=== PATIENT | female | born 1980 | race Two or more races ===

== ENCOUNTER 2016-06-13 22:06 | Emergency (ER) | payer MEDICAID, OTHER ==
[~2016-06-13 22:06] MED LIST: CIPR500T94 PO; HYDR-971 PO; NAPR500T PO; ONDA4TAB10 SL
[2016-06-13 23:04] LABS: BILIRUBIN,URINE NEGATIVE (NEG); GLUCOSE,URINE NEGATIVE (NEG); NITRITE,URINE NEGATIVE (NEG); PH,URINE 6.5; PROTEIN,URINE NEGATIVE (NEG-TRACE)
[2016-06-13 23:09] LABS: BACTERIA,URINE FEW /HPF (0-FEW); SQUAMOUS EPITHELIAL CELL,UR FEW /LPF; WBC,URINE 0 /HPF (0-4)
[2016-06-13 23:33] VITALS: BP 129/68
[2016-06-13 23:42] LABS: BASO # 0.1 x10^3/uL (0.0-0.2); BASO % 1 % (0-3); EOS % 3 % (0-3); HEMOGLOBIN 12.2 g/dL (12.0-15.5); LYMPH # 2.9 x10^3/uL (1.0-4.8); LYMPH % 25 % (24-48); MEAN CORPUSCULAR HEMOGLOBIN 27 pg (25-35); MEAN CORPUSCULAR HGB CONC 32 g/dL (31-37); MEAN CORPUSCULAR VOLUME 83 fL (79-100); MONO % 7 % (0-9); NEUT % 65 % (31-73); PLATELET COUNT 292 x10^3/uL (140-400); RED BLOOD COUNT 4.58 x10^6/uL (3.50-5.40); RED CELL DISTRIBUTION WIDTH 13.6 % (11.5-14.5); WHITE BLOOD COUNT 11.8 x10^3/uL (4.0-11.0)
[2016-06-13 23:57] LABS: CALCIUM 9.2 mg/dL (8.5-10.1); CREATININE 0.6 mg/dL (0.6-1.0); GFR 111.9; POTASSIUM 3.6 mmol/L (3.5-5.1)
--- NOTE | 2016-06-14 00:07 | RAD ---
PROCEDURE OB ultrasound dated 06/13/2016. HISTORY Spotting. Vaginal bleeding. TECHNIQUE Trans abdominal and transvaginal imaging performed. COMPARISON None. FINDINGS There is a hypoechoic focus in the endometrial canal that may represent gestational sac, measures 0.96 centimeters, correlating with a 5 week 5 day gestation. No pole or yolk sac is visualized. No subchorionic collection. Uterus and left ovary are unremarkable. Trace amount of fluid in the cervix. There is a prominent nabothian cysts. Left ovary measures 2.2 x 1.5 x 1.5 centimeter. Not right ovary not visualized. IMPRESSION - Hypoechoic structure in the endometrial canal may represent a gestational sac correlating with a 5 week 5 day gestation. There is no pole or heart tones at this time. Consider very early gestation or blighted ovum. Recommend correlation with beta HCG values. - Trace amount of fluid in the cervix. - Nonvisualization of the right ovary. Electronically signed by: Jose David Arambula (Jun 14, 2016 00:06:55)
[2016-06-14] MEDS ORDERED: PREN1TAB58 PO (00:21)
--- NOTE | 2016-06-14 00:21 | PHYS DOC ---
Past Medical History Past Medical History: No Pertinent History Past Surgical History: Additional Past Surgical Histo: April 2015 emergency , still born baby, no care. Alcohol Use: None Drug Use: None Adult General Chief Complaint Chief Complaint: VAGINAL BLEEDING [facility] This is a 36-year-old female who has some vaginal spotting today but no pain. Patient states her last menstrual period that she remembers was in March and that she took a home test a month ago that was positive. She has received no care however. She states this is her eighth . She states the first 5 pregnancies went full-term without complication and she also had one full-term that was a stillbirth and then a miscarriage in the first trimester. She denies any pain. She denies any fever or chills. She denies any chest pain or shortness of breath. Patient is speaking in complete and in no distress. She denies any significant past medical history. Review of Systems Review of Systems Constitutional: Denies fever or chills [] Eyes: Denies change in visual acuity, redness, or eye pain [] HENT: Denies nasal congestion or sore throat [] Respiratory: Denies cough or shortness of breath [] Cardiovascular: No additional information not addressed in HPI [] GI: Denies abdominal pain, nausea, vomiting, bloody stools or diarrhea [] : Denies dysuria or hematuria [] Musculoskeletal: Denies back pain or joint pain [] Integument: Denies rash or skin lesions [] Neurologic: Denies headache, focal weakness or sensory changes [] Endocrine: Denies polyuria or polydipsia [] Allergies Allergies Allergies Coded Allergies Type Severity Reaction Last Updated Verified No Known Drug Allergies 04/22/15 No Physical Exam Physical Exam Constitutional: Well developed, well nourished, no acute distress, non-toxic appearance. [] HENT: Normocephalic, atraumatic, bilateral external ears normal, oropharynx moist, no oral exudates, nose normal. [] Eyes: PERRLA, EOMI, conjunctiva normal, no discharge. [] Neck: Normal range of motion, no tenderness, supple, no stridor. [] Cardiovascular:Heart rate regular rhythm, no murmur [] Lungs & Thorax: Bilateral breath sounds clear to auscultation [] Abdomen: Bowel sounds normal, soft, no tenderness, no masses, no pulsatile masses. [] Pelvic exam: Closed cervical os with minimal blood seen in the vaginal vault Skin: Warm, dry, no erythema, no rash. [] Back: No tenderness, no CVA tenderness. [] Extremities: No tenderness, no cyanosis, no clubbing, ROM intact, no edema. [] Neurologic: Alert and oriented X 3, normal motor function, normal sensory function, no focal deficits noted. [] Psychologic: Affect normal, judgement normal, mood normal. [] Current Patient Data Vital Signs Vital Signs Date Time Temp Pulse Resp B/P Pulse Ox O2 Delivery O2 Flow Rate FiO2 06/13/16 23:33 73 18 129/68 97 Room Air 06/13/16 22:17 98.3 98.3 Lab Values Laboratory Tests Test 06/13/16 22:30 06/13/16 23:28 Urine Collection Type Unknown Urine Color Yellow Urine Clarity Clear Urine pH 6.5 Urine Specific [place] 1.020 Urine Protein Negativemg/dL (NEG-TRACE) Urine Glucose (UA) Negativemg/dL (NEG) Urine Ketones (Stick) Negativemg/dL (NEG) Urine Blood Large (NEG) Urine Nitrite Negative (NEG) Urine Bilirubin Negative (NEG) Urine Urobilinogen Dipstick 1.0mg/dL (0.2 mg/dL) Urine Leukocyte Esterase Negative (NEG) Urine RBC 6-10/HPF (0-2) Urine WBC 0/HPF (0-4) Urine Squamous Epithelial Cells Few/LPF Urine Bacteria Few/HPF (0-FEW) Urine Mucus Slight/LPF White Blood Count 11.8x10^3/uL (4.0-11.0) H Red Blood Count 4.58x10^6/uL (3.50-5.40) Hemoglobin 12.2g/dL (12.0-15.5) Hematocrit 38.0% (36.0-47.0) Mean Corpuscular Volume 83fL (79-100) Mean Corpuscular Hemoglobin 27pg (25-35) Mean Corpuscular Hemoglobin Concent 32g/dL (31-37) Red Cell Distribution Width 13.6% (11.5-14.5) Platelet Count 292x10^3/uL (140-400) Neutrophils (%) (Auto) 65% (31-73) Lymphocytes (%) (Auto) 25% (24-48) Monocytes (%) (Auto) 7% (0-9) Eosinophils (%) (Auto) 3% (0-3) Basophils (%) (Auto) 1% (0-3) Neutrophils # (Auto) 7.7x10^3uL (1.8-7.7) Lymphocytes # (Auto) 2.9x10^3/uL (1.0-4.8) Monocytes # (Auto) 0.8x10^3/uL (0.0-1.1) Eosinophils # (Auto) 0.4x10^3/uL (0.0-0.7) Basophils # (Auto) 0.1x10^3/uL (0.0-0.2) Maternal Serum HCG Beta Subunit 17333fPB/mL (0-6) H Sodium Level 141mmol/L (136-145) Potassium Level 3.6mmol/L (3.5-5.1) Chloride Level 104mmol/L (98-107) Carbon Dioxide Level 29mmol/L (21-32) Anion Gap 8 (6-14) Blood Urea Nitrogen 15mg/dL (7-20) Creatinine 0.6mg/dL (0.6-1.0) Estimated GFR (Cockcroft-Gault) 111.9 Glucose Level 112mg/dL (70-99) H Calcium Level 9.2mg/dL (8.5-10.1) Laboratory Tests 06/13/16 23:28 Laboratory Tests 06/13/16 23:28 EKG EKG [] Radiology/Procedures Radiology/Procedures Transvaginal OB ultrasound demonstrates the following: - Hypoechoic structure in the endometrial canal may represent a gestational sac correlating with a 5 week 5 day gestation. There is no pole or heart tones at this time. Consider very early gestation or blighted ovum. Recommend correlation with beta HCG values. - Trace amount of fluid in the cervix. - Nonvisualization of the right ovary. Course & Med Decision Making Course & Med Decision Making Pertinent Labs and Imaging studies reviewed. (See chart for details) This 36-year-old female with ongoing vaginal spotting is likely having a threatened at this time. Blood work is unrevealing. Her transvaginal ultrasound demonstrated a likely gestational sac in the endometrial canal that is correlating with a 5 week 5 day gestation. There is no pole or heart tones seen which could be related to an early gestation or a blighted ovum. I communicated all these findings with the patient and will be providing her an OB follow-up in the next 48 hours for a threatened . Her blood type was A+. She was discharged without incident. Dragon Disclaimer Dragon Disclaimer This electronic medical record was generated, in whole or in part, using a voice recognition dictation system. Departure Departure Impression: Primary Impression: Threatened Disposition: HOME, SELF-CARE Admitting Physician: Other Condition: STABLE Referrals: NO PCP (PCP) RAPHAEL KOHLER Jr, MD Patient Instructions: Threatened Miscarriage, [id number] Additional Instructions: Please follow up with the OB doctor in the next 2 days for your . Take your vitamins daily. Return to the ER if you develop any worsening bleeding or pain. Scripts Vits W-Ca,Fe,Fa(<1MG) ( Vitamins)1 Each Tablet1 Tab PO DAILY # 30 TAB Ref 11 Prov:KARI RODNEY DO 06/14/16 KARI RODNEY DO Jun 14, 2016 00:21
== END 2016-06-14 01:03 | disposition home or self-care (01) ==
LOC: ER 22:06
DX: O20.0 Threatened abortion (principal); Z3A.01 Less than 8 weeks gestation of pregnancy
CPT/HCPCS: 36415; 76817; 80048; 81001; 81025; 84702; 85027; 86900; 86901; 99285-25

== ENCOUNTER 2016-06-26 20:36 | Emergency (ER) | payer OTHER ==
[~2016-06-26] VITALS: Ht 157.5 cm; Wt 96.6 kg
[~2016-06-26 20:36] MED LIST changes: +PREN1TAB58 PO
[2016-06-26 21:25] LABS: BASO # 0.1 x10^3/uL (0.0-0.2); BASO % 1 % (0-3); EOS % 3 % (0-3); HEMATOCRIT 38.1 % (36.0-47.0); HEMOGLOBIN 12.4 g/dL (12.0-15.5); LYMPH # 3.5 x10^3/uL (1.0-4.8); LYMPH % 32 % (24-48); MEAN CORPUSCULAR HEMOGLOBIN 27 pg (25-35); MEAN CORPUSCULAR HGB CONC 33 g/dL (31-37); MEAN CORPUSCULAR VOLUME 83 fL (79-100); MONO % 7 % (0-9); NEUT % 57 % (31-73); PLATELET COUNT 300 x10^3/uL (140-400); RED BLOOD COUNT 4.57 x10^6/uL (3.50-5.40); RED CELL DISTRIBUTION WIDTH 13.5 % (11.5-14.5); WHITE BLOOD COUNT 10.9 x10^3/uL (4.0-11.0)
[2016-06-26 21:28] LABS: BILIRUBIN,URINE NEGATIVE (NEG); GLUCOSE,URINE NEGATIVE (NEG); NITRITE,URINE NEGATIVE (NEG); PROTEIN,URINE 30 mg/dL (NEG-TRACE)
[2016-06-26] MEDS ORDERED: ONDANSETRON PF 4 MG/2 ML VIAL. IV ONE (21:30)
[2016-06-26] MEDS ORDERED: IV NORMAL SALINE 1000ML BAG 1,000 ML IV ONE (21:30)
[2016-06-26] MEDS ORDERED: FENTANYL PF 100 MCG/2 ML VIAL. IV PRN (21:30)
[2016-06-26 21:34] LABS: BACTERIA,URINE FEW /HPF (0-FEW); SQUAMOUS EPITHELIAL CELL,UR MOD /LPF
[2016-06-26 21:39] LABS: CALCIUM 8.8 mg/dL (8.5-10.1); CREATININE 0.6 mg/dL (0.6-1.0); GFR 111.9; POTASSIUM 3.4 mmol/L (3.5-5.1)
[2016-06-26 21:45] LABS: ALBUMIN 3.3 g/dL (3.4-5.0); ALBUMIN/GLOBULIN RATIO 0.8 (1.0-1.7); TOTAL BILIRUBIN 0.2 mg/dL (0.2-1.0); TOTAL PROTEIN 7.7 g/dL (6.4-8.2)
--- NOTE | 2016-06-26 22:41 | RAD ---
PROCEDURE Ob transvaginal ultrasound HISTORY 36-year-old female with vaginal bleeding. No beta HCG level available. TECHNIQUE Sonography of the pelvis is performed utilizing a transvaginal transducer. COMPARISON June 13, 2016. FINDINGS No fluid is seen within the cervical canal. A couple nabothian cysts are suggested. The uterus is anteflexed measuring 9.5 x 4.9 by 5.1 cm. Endometrial thickness of 1.8 cm demonstrated. A trace amount of fluid is present within the endometrial canal, somewhat irregular in configuration not consistent with a well-defined gestational sac. The amount of fluid present is smaller in band that seen on the previous ultrasound and less organized in appearance. The right ovary is visualized measuring 2.1 x 1.1 x 1.1 cm, with internal blood flow documented. The left ovary is visualized measuring 1.9 x 1.5 x 1.4 cm, with internal blood flow documented. No ovarian or adnexal mass is seen. No free fluid is seen within the provided images. IMPRESSION Small amount of irregular fluid within the endometrial canal, without a well-defined gestational sac seen. Amount of endometrial fluid and organization is decreased when compared to the previous exam. No cervical fluid present. No adnexal mass seen. Electronically signed by: Angelica Kimball (Jun 26, 2016 22:39:24)
[2016-06-27] MEDS ORDERED: CEPH-264 PO (00:15)
[2016-06-27] MEDS ORDERED: NAPR500T PO (00:15)
[2016-06-27 00:28] VITALS: BP 128/75
[2016-06-27] MEDS ORDERED: CEPHALEXIN 250 MG CAPSULE PO ONE (00:30)
[2016-06-27] MEDS ORDERED: NAPROXEN 250 MG TABLET PO ONE (00:30)
--- NOTE | 2016-06-27 02:49 | ED.ADGEN ---
Past Medical History Past Medical History: No Pertinent History Past Surgical History: Additional Past Surgical Histo: April 2015 emergency , still born baby, no care. Alcohol Use: None Drug Use: None Adult General Chief Complaint Chief Complaint: VAGINAL BLEEDING HPI HPI Patient is a 36 year old woman, , with history of of a stillbirth in April 2015, and a previous miscarriage, who presents to the emergency department with complaint of vaginal bleeding after an emergency department evaluation several days ago for vaginal bleeding and threatened miscarriage. Patient states that she's had bleeding and cramping over the past 3 days. Denies any passage of fluid or tissue. States she is having cramping and bleeding consistent with a typical menstrual cycle. Patient states she's used 3 pads today. Denies any lightheadedness, dizziness, any nausea or vomiting. Mild cramping at this time. Mild back pain. No urinary symptoms, no discharge, drainage, no concern for STD exposures. Review of Systems Review of Systems Constitutional: Denies fever or chills. [] Eyes: Denies change in visual acuity. [] HENT: Denies nasal congestion or sore throat. [] Respiratory: Denies cough or shortness of breath. [] Cardiovascular: Denies chest pain or edema. [] GI: Denies abdominal pain, nausea, vomiting, bloody stools or diarrhea. [] : Denies dysuria. [] Musculoskeletal: Denies back pain or joint pain. [] Integument: Denies rash. [] Neurologic: Denies headache, focal weakness or sensory changes. [] Endocrine: Denies polyuria or polydipsia. [] Lymphatic: Denies swollen glands. [] Psychiatric: Denies depression or anxiety. [] Current Medications Current Medications Current Medications Medications (Trade) Dose Ordered Sig/Macy Start Time Stop Time Status Last Admin Dose Admin Cephalexin HCl (Keflex) 500 mg 1X ONCE 06/27/16 00:30 06/27/16 00:31 DC 06/27/16 00:20 500 MG Fentanyl Citrate (Fentanyl 2ml Vial) 25 mcg PRN Q15MIN PRN 06/26/16 21:30 06/27/16 02:02 DC 06/26/16 21:31 25 MCG Naproxen (Naprosyn) 250 mg 1X ONCE 06/27/16 00:30 06/27/16 00:31 DC 06/27/16 00:20 250 MG Ondansetron HCl (Zofran) 4 mg 1X ONCE 06/26/16 21:30 06/26/16 21:31 DC 06/26/16 21:31 4 MG Sodium Chloride (Iv Sodium Chloride 0.9% 1000ml Bag) 1,000 ml @ 1,000 mls/hr 1X ONCE 06/26/16 21:30 06/26/16 22:29 DC 06/26/16 21:28 1,000 MLS/HR Allergies Allergies Allergies Coded Allergies Type Severity Reaction Last Updated Verified No Known Drug Allergies 04/22/15 No Physical Exam Physical Exam Constitutional: Well developed, well nourished, no acute distress, non-toxic appearance. [] HENT: Normocephalic, atraumatic, bilateral external ears normal, oropharynx moist, no oral exudates, nose normal. [] Eyes: PERRLA, EOMI, conjunctiva normal, no discharge. [] Neck: Normal range of motion, no tenderness, supple, no stridor. [] Cardiovascular:Heart rate regular rhythm, no murmur , S1, S2, rubs or gallops. [ ] Lungs & Thorax: Bilateral breath sounds clear to auscultation, no wheezing, rhonchi, rales. No chest tenderness or crepitus. [] Abdomen: Bowel sounds normal, soft, no tenderness, no masses, no pulsatile masses. [] Skin: Warm, dry, no erythema, no rash. [] Back: No tenderness, no CVA tenderness. [] Extremities: No tenderness, no cyanosis, no clubbing, ROM intact, no edema. [] Neurologic: Alert and oriented X 3, normal motor function, normal sensory function, no focal deficits noted. [] Psychologic: Affect normal, judgement normal, mood normal. [] examination: Patient with a small amount of dark blood noted in the vault, patient with open os, internal and external, 1 cm. No tissue noted, patient was smaller dark blood as stated, normal-appearing cervix which is dilated stated. No adnexal masses or tenderness. Current Patient Data Vital Signs Vital Signs Date Time Temp Pulse Resp B/P Pulse Ox O2 Delivery O2 Flow Rate FiO2 06/27/16 00:28 87 128/75 98 Room Air 3/19/17 21:31 18 06/26/16 20:48 98.6 98.6 Lab Values Laboratory Tests Test 06/26/16 20:22 06/26/16 21:07 06/26/16 21:15 POC Urine HCG, Qualitative Hcg positive (Negative) White Blood Count 10.9x10^3/uL (4.0-11.0) Red Blood Count 4.57x10^6/uL (3.50-5.40) Hemoglobin 12.4g/dL (12.0-15.5) Hematocrit 38.1% (36.0-47.0) Mean Corpuscular Volume 83fL (79-100) Mean Corpuscular Hemoglobin 27pg (25-35) Mean Corpuscular Hemoglobin Concent 33g/dL (31-37) Red Cell Distribution Width 13.5% (11.5-14.5) Platelet Count 300x10^3/uL (140-400) Neutrophils (%) (Auto) 57% (31-73) Lymphocytes (%) (Auto) 32% (24-48) Monocytes (%) (Auto) 7% (0-9) Eosinophils (%) (Auto) 3% (0-3) Basophils (%) (Auto) 1% (0-3) Neutrophils # (Auto) 6.2x10^3uL (1.8-7.7) Lymphocytes # (Auto) 3.5x10^3/uL (1.0-4.8) Monocytes # (Auto) 0.8x10^3/uL (0.0-1.1) Eosinophils # (Auto) 0.4x10^3/uL (0.0-0.7) Basophils # (Auto) 0.1x10^3/uL (0.0-0.2) Urine Collection Type Unknown Urine Color Yellow Urine Clarity Turbid Urine pH 6.0 Urine Specific [place] 1.015 Urine Protein 30mg/dL (NEG-TRACE) Urine Glucose (UA) Negativemg/dL (NEG) Urine Ketones (Stick) Negativemg/dL (NEG) Urine Blood Large (NEG) Urine Nitrite Negative (NEG) Urine Bilirubin Negative (NEG) Urine Urobilinogen Dipstick 1.0mg/dL (0.2 mg/dL) Urine Leukocyte Esterase Small (NEG) Urine RBC 11-20/HPF (0-2) Urine WBC 5-10/HPF (0-4) Urine Squamous Epithelial Cells Mod/LPF Urine Bacteria Few/HPF (0-FEW) Urine Mucus Mod/LPF Sodium Level 142mmol/L (136-145) Potassium Level 3.4mmol/L (3.5-5.1) L Chloride Level 105mmol/L (98-107) Carbon Dioxide Level 28mmol/L (21-32) Anion Gap 9 (6-14) Blood Urea Nitrogen 11mg/dL (7-20) Creatinine 0.6mg/dL (0.6-1.0) Estimated GFR (Cockcroft-Gault) 111.9 BUN/Creatinine Ratio 18 (6-20) Glucose Level 100mg/dL (70-99) H Calcium Level 8.8mg/dL (8.5-10.1) Total Bilirubin 0.2mg/dL (0.2-1.0) Aspartate Amino Transferase (AST) 17U/L (15-37) Alanine Aminotransferase (ALT) 29U/L (14-59) Alkaline Phosphatase 66U/L (46-116) Total Protein 7.7g/dL (6.4-8.2) Albumin 3.3g/dL (3.4-5.0) L Albumin/Globulin Ratio 0.8 (1.0-1.7) L Maternal Serum HCG Beta Subunit 1641mIU/mL (0-6) H Laboratory Tests 06/26/16 21:07 Laboratory Tests 06/26/16 21:07 Microbiology 06/26/16 Wet Prep - Final, Complete EKG EKG ECG: Rhythm strip: Sinus rhythm, heart rate 80 bpm, no ectopy. As interpreted by me. Radiology/Procedures Radiology/Procedures [] [facility] [address] [place], [place] [id number] IMAGING REPORT Signed PATIENT: BROOKLYN PONCE ACCOUNT: [id number] : 1980 LOCATION: ER AGE: 36 SEX: F EXAM STATUS: REG ER ORD. PHYSICIAN: RHONDA VELÁZQUEZ DO REASON: Vag bleeding in PROCEDURE: OB TRANSVAG PROCEDURE Ob transvaginal ultrasound HISTORY 36-year-old female with vaginal bleeding. No beta HCG level available. TECHNIQUE Sonography of the pelvis is performed utilizing a transvaginal transducer. COMPARISON June 13, 2016. FINDINGS No fluid is seen within the cervical canal. A couple nabothian cysts are suggested. The uterus is anteflexed measuring 9.5 x 4.9 by 5.1 cm. Endometrial thickness of 1.8 cm demonstrated. A trace amount of fluid is present within the endometrial canal, somewhat irregular in configuration not consistent with a well-defined gestational sac. The amount of fluid present is smaller in band that seen on the previous ultrasound and less organized in appearance. The right ovary is visualized measuring 2.1 x 1.1 x 1.1 cm, with internal blood flow documented. The left ovary is visualized measuring 1.9 x 1.5 x 1.4 cm, with internal blood flow documented. No ovarian or adnexal mass is seen. No free fluid is seen within the provided images. IMPRESSION Small amount of irregular fluid within the endometrial canal, without a well-defined gestational sac seen. Amount of endometrial fluid and organization is decreased when compared to the previous exam. No cervical fluid present. No adnexal mass seen. Electronically signed by: Ingrid Lund (Jun 26, 2016 22:39:24) DICTATED and SIGNED BY: INGRID LUND MD DATE: 06/26/169 CC: RHONDA VELÁZQUEZ DO; NO PCP ~ Course & Med Decision Making Course & Med Decision Making Pertinent Labs and Imaging studies reviewed. (See chart for details) Patient's examination is consistent with miscarriage. Ultrasound reveals small amount of fluid in the uterus and vaginal canal, no evidence of gestational sac or other denies structure. Patient's beta quantitative assay has gone from 13, [id number], consistent with a completed miscarriage. Patient also noted to have evidence of a urinary tract infection. We discussed the fact that this is a completed miscarriage with patient and significant other at bedside. Patient has an appointment to follow up with an [facility] later this week. Inserting her to contact her [facility] with this information, to confirm follow-up. Patient initiated on Keflex in the emergency department, first dose given in the ED without issue. Patient is not experiencing any cramping at this time. Instructed to use [id number] pain medications as needed, given clear and detailed return instructions with which she voiced understanding and agreement. Patient discharged home in stable condition with plan as above. [place]ison Disclaimer Dragon Disclaimer This electronic medical record was generated, in whole or in part, using a voice recognition dictation system. Departure Impression: Primary Impression: Complete miscarriage Disposition: HOME, SELF-CARE Condition: IMPROVED Scripts Naproxen (Naprosyn)500 Mg Tablet1 Tab PO BID PRN PAIN #10 TAB Ref 1 Prov:RHONDA VELÁZQUEZ DO 06/27/16 Cephalexin (Keflex)500 Mg Capsule1 Cap PO BID #14 CAP Prov:RHONDA VELÁZQUEZ DO 06/27/16 RHONDA VELÁZQUEZ DO Jun 27, 2016 02:49
== END 2016-06-27 00:36 | disposition home or self-care (01) ==
LOC: ER 20:36
DX: O03.9 Complete or unspecified spontaneous abortion without complication (principal); Z3A.08 8 weeks gestation of pregnancy
CPT/HCPCS: 36415; 76817; 80053; 81001; 81025; 84702; 85027; 87086; 87186; 87491; 87591; 96361; 96374; 96375; 99285; J2405; J3010; J7030; Q0111

== ENCOUNTER 2016-08-26 17:36 | Emergency (ER) | payer OTHER ==
[~2016-08-26] VITALS: Ht 157.5 cm; Wt 90.7 kg
[~2016-08-26 17:36] MED LIST changes: +CEPH-264 PO
[2016-08-26 18:55] VITALS: BP 138/82
[2016-08-26] MEDS ORDERED: HYDR-79 PO (18:55)
[2016-08-26] MEDS ORDERED: AMOX875T PO (18:55)
--- NOTE | 2016-08-26 18:55 | PHYS DOC ---
Past Medical History Past Medical History: No Pertinent History Past Surgical History: Additional Past Surgical Histo: April 2015 emergency , still born baby, no care. Alcohol Use: None Drug Use: None Adult General Chief Complaint Chief Complaint: DENTAL PROBLEM HPI HPI Patient is a 36 year old female who presents with right lower gum dental pain that began yesterday. Patient states she woke up this morning and her right lower facial area was swollen. Review of Systems Review of Systems Constitutional: Denies fever or chills [] Eyes: Denies change in visual acuity, redness, or eye pain [] HENT: Dental pain and jaw swelling Musculoskeletal: Denies back pain or joint pain [] Integument: Denies rash or skin lesions [] Neurologic: Denies headache, focal weakness or sensory changes [] Endocrine: Denies polyuria or polydipsia [] Allergies Allergies Allergies Coded Allergies Type Severity Reaction Last Updated Verified No Known Drug Allergies 04/22/15 No Physical Exam Physical Exam Constitutional: Well developed, well nourished, no acute distress, non-toxic appearance. [] HENT: Normocephalic, atraumatic, bilateral external ears normal, oropharynx moist, no oral exudates, nose normal. [] Right lower facial area with mild swelling consistent with a dental abscess. Tooth #32 is decayed. Missing teeth #31 and 30. Scattered dental caries throughout her teeth. Right gum with redness on the molars and premolars. No fluctuance noted on the right gum. Skin: Warm, dry, no erythema, no rash. [] Back: No tenderness, no CVA tenderness. [] Extremities: No tenderness, no cyanosis, no clubbing, ROM intact, no edema. [] Neurologic: Alert and oriented X 3, normal motor function, normal sensory function, no focal deficits noted. [] Psychologic: Affect normal, judgement normal, mood normal. [] EKG EKG [] Radiology/Procedures Radiology/Procedures [] Course & Med Decision Making Course & Med Decision Making Pertinent Labs and Imaging studies reviewed. (See chart for details) Patient has dental abscess. Discharged with amoxicillin, follow-up with the dentist in 1-2 weeks. Dragon Disclaimer Dragon Disclaimer This electronic medical record was generated, in whole or in part, using a voice recognition dictation system. Departure Departure Impression: Primary Impression: Dental abscess Additional Impression: Dentalgia Disposition: 01 HOME, SELF-CARE Condition: STABLE Referrals: NO PCP (PCP) Follow-up with your dentist in 1-2 weeks. Patient Instructions: Dental Abscess, Dental Caries Additional Instructions: You were seen for dental abscess. Complete your antibiotics. Ensure you follow- up with the dentist as soon as possible. Scripts Hydrocodone/Ibuprofen (HYDROCODONE-IBUPROFEN 7.5-200 ) 1 Each Tablet 1 TAB PO PRN Q6HRS Y for PAIN, #12 TAB 0 Refills Prov: ADRIENNE HORTON APRN 08/26/16 Amoxicillin (AMOXICILLIN) 875 Mg Tablet 1 TAB PO BID, #20 TAB Prov: ADRIENNE HORTON APRN 08/26/16 Problem Qualifiers ADRIENNE HORTON APRN August 26, 2016 18:55
== END 2016-08-26 19:07 | disposition home or self-care (01) ==
LOC: ER 17:36
DX: K04.7 Periapical abscess without sinus (principal)
CPT/HCPCS: 99283

== ENCOUNTER 2017-09-17 02:29 | Emergency (ER) | payer SELFPAY, OTHER ==
[2017-09-17 02:46] LABS: URINE HCG POC HCG POSITIVE (Negative)
[2017-09-17 03:23] LABS: BILIRUBIN,URINE NEGATIVE (NEG); CLARITY,URINE CLEAR; COLOR,URINE YELLOW; GLUCOSE,URINE NEGATIVE (NEG); NITRITE,URINE NEGATIVE (NEG); PH,URINE 5.5; PROTEIN,URINE 100 mg/dL (NEG-TRACE)
[2017-09-17 03:43] LABS: BACTERIA,URINE FEW /HPF (0-FEW); RBC,URINE OCC /HPF (0-2); SQUAMOUS EPITHELIAL CELL,UR MOD /LPF
[2017-09-17 03:47] LABS: BASO % 0 % (0-3); EOS # 0.1 x10^3/uL (0.0-0.7); EOS % 0 % (0-3); HEMATOCRIT 38.6 % (36.0-47.0); HEMOGLOBIN 13.3 g/dL (12.0-15.5); LYMPH # 1.1 x10^3/uL (1.0-4.8); LYMPH % 6 % (24-48); MEAN CORPUSCULAR HEMOGLOBIN 28 pg (25-35); MEAN CORPUSCULAR HGB CONC 35 g/dL (31-37); MEAN CORPUSCULAR VOLUME 82 fL (79-100); MONO # 0.8 x10^3/uL (0.0-1.1); MONO % 5 % (0-9); NEUT # 15.3 x10^3uL (1.8-7.7); NEUT % 89 % (31-73); PLATELET COUNT 272 x10^3/uL (140-400); RED CELL DISTRIBUTION WIDTH 13.7 % (11.5-14.5); WHITE BLOOD COUNT 17.3 x10^3/uL (4.0-11.0)
[2017-09-17 03:54] LABS: ADD MAN DIFF? YES
[2017-09-17 03:57] LABS: ANION GAP 12 (6-14); BLOOD UREA NITROGEN 15 mg/dL (7-20); CALCIUM 8.6 mg/dL (8.5-10.1); CARBON DIOXIDE 22 mmol/L (21-32); CHLORIDE 101 mmol/L (98-107); CREATININE 0.6 mg/dL (0.6-1.0); GFR 111.3; GLUCOSE 129 mg/dL (70-99); POTASSIUM 3.9 mmol/L (3.5-5.1); SODIUM 135 mmol/L (136-145)
[2017-09-17] MEDS: diphenhydrAMINE 50 MG/ML VIAL IM (04:00)
[2017-09-17] MEDS: METOCLOPRAMIDE HCL 10 MG/2 ML VIAL. IV (04:00)
[2017-09-17] MEDS: IV NORMAL SALINE 1000ML BAG 1,000 ML IV (04:00)
[2017-09-17 04:03] LABS: ALBUMIN 2.8 g/dL (3.4-5.0); ALK PHOS 67 U/L (46-116); ALT (SGPT) 27 U/L (14-59); AST (SGOT) 24 U/L (15-37); DIRECT BILIRUBIN 0.1 mg/dL (0.0-0.2); LIPASE 86 U/L (73-393); TOTAL BILIRUBIN 0.6 mg/dL (0.2-1.0); TOTAL PROTEIN 7.9 g/dL (6.4-8.2)
[2017-09-17 05:04] LABS: % BANDS 9 % (0-9); % LYMPHS 9 % (24-48); % MONOS 1 % (0-10); % SEGS 81 % (35-66); PLT ESTIMATE ADEQUATE (ADEQUATE)
== END 2017-09-17 06:36 | disposition home or self-care (01) ==
LOC: ER 02:29
DX: O26.891 Other specified pregnancy related conditions, first trimester (principal); R10.11 Right upper quadrant pain; O21.9 Vomiting of pregnancy, unspecified; O24.419 Gestational diabetes mellitus in pregnancy, unspecified control; O99.331 Smoking (tobacco) complicating pregnancy, first trimester; Z3A.13 13 weeks gestation of pregnancy
CPT/HCPCS: 36415; 76705; 76815; 80048; 80076; 81001; 81025; 83690; 85007; 85025; 96361; 96372; 96374; 99285-25; J1200; J2765; J7030

== ENCOUNTER → 2017-11-14 | Outpatient (CLI) | payer MEDICAID | END | disposition home or self-care (01) | LOC: US 12:05 | DX: O36.4XX0 Maternal care for intrauterine death, not applicable or unspecified (principal); Z3A.21 21 weeks gestation of pregnancy | CPT/HCPCS: 76805; 76817 ==

== ENCOUNTER 2017-11-21 08:18 | Inpatient (IN) | payer MEDICAID, OTHER ==
[~2017-11-21] VITALS: Ht 154.9 cm; Wt 102.5 kg
[~2017-11-21 08:18] MED LIST changes: +AMOX875T PO; +HYDR-79 PO; +METO10TA81 PO; +NAPR-683 PO; -NAPR500T PO
--- NOTE | 2017-11-21 08:41 | PDOC1 ---
OB - History Hx of Present Care: Limited Care Ultrasounds: Normal mid trimester US Obstetrical Complications: Other (IUFD) Medical Complications: None Past Family/Social History * Past Medical, Surgical, Family and Obstetric Histories reviewed from chart. Blood Type: A+ Rubella: Immune RPR/VDRL: Negative GBS Status: Unknown HBsAG: Negative OB - Chief Complaint & HPI Date of Admission: Date of Admission: Nov 21, 2017 at 08:18 Chief Complaint/History : 9 Para: 6 EGA: 20 Reason for admission: induction of labor (IUFD) Admission Nurse Assessment Rev: Yes OB - Admission Exam Physical Exam HEENT: Normal Heart: Regular Rate Lungs: Clear Abdomen: Gravid, Non tender, Soft Reflexes: Normal Cervical Dilatation: None Effacement: 25% Station: -3 Membranes: Intact Amniotic Fluid: Other Short Term Variability: Absent Contractions on Admission: None Text A: 20 wks IUFD Previous c/s x 1 P: Admit for IOL with cytotec for delivery of IUFD. RAPHAEL KOHLER Jr, MD Nov 21, 2017 08:41
[2017-11-21] MEDS ORDERED: ONDANSETRON PF 4 MG/2 ML VIAL. IV PRN (09:00)
[2017-11-21] MEDS ORDERED: IBUPROFEN 800 MG TABLET. PO PRN (09:00)
[2017-11-21] MEDS ORDERED: ACETAMINOPHEN 325 MG TABLET. PO PRN (09:00)
[2017-11-21] MEDS ORDERED: MISOPROSTOL VG PRN (09:00)
[2017-11-21] MEDS ORDERED: fentaNYL PF VIAL 100 MCG/2 ML VIAL IV PRN (09:00)
[2017-11-21] MEDS ORDERED: IV RINGERS,LACTATED 1000ML 1,000 ML IV PRN (09:00)
[2017-11-21] MEDS ORDERED: OXYTOCIN 30 UNIT/500 ML PREMIX 500 ML IV PRN (09:00)
[2017-11-21] MEDS ORDERED: 0.9 % SODIUM CHLORIDE 10 ML DISP.SYRIN. IV PRN (09:00)
[2017-11-21] MEDS ORDERED: TERBUTALINE 1 MG/ML VIAL. SQ PRN (09:00)
[2017-11-21 09:24] LABS: BILIRUBIN,URINE NEGATIVE (NEG); CLARITY,URINE CLEAR; COLOR,URINE YELLOW; NITRITE,URINE POSITIVE (NEG); PROTEIN,URINE 30 mg/dL (NEG-TRACE); UROBILINOGEN,URINE 0.2 mg/dL (0.2 mg/dL)
[2017-11-21 09:37] VITALS: BP 127/68
[2017-11-21 09:49] LABS: BASO % 0 % (0-3); EOS # 0.2 x10^3/uL (0.0-0.7); EOS % 2 % (0-3); HEMATOCRIT 34.3 % (36.0-47.0); HEMOGLOBIN 11.5 g/dL (12.0-15.5); LYMPH # 2.2 x10^3/uL (1.0-4.8); LYMPH % 20 % (24-48); MEAN CORPUSCULAR HEMOGLOBIN 28 pg (25-35); MEAN CORPUSCULAR HGB CONC 34 g/dL (31-37); MEAN CORPUSCULAR VOLUME 84 fL (79-100); MONO # 0.6 x10^3/uL (0.0-1.1); MONO % 6 % (0-9); NEUT # 7.9 x10^3uL (1.8-7.7); NEUT % 71 % (31-73); PLATELET COUNT 269 x10^3/uL (140-400); RED CELL DISTRIBUTION WIDTH 13.5 % (11.5-14.5)
[2017-11-21 09:50] LABS: BACTERIA,URINE MANY /HPF (0-FEW)
[2017-11-21 09:51] LABS: SQUAMOUS EPITHELIAL CELL,UR MANY /LPF
[2017-11-21] MEDS: miSOPROStol 200MCG TAB 200 MCG TABLET VG SCH ×3 (09:54→19:00)
[2017-11-21] MEDS ORDERED: miSOPROStol 200MCG TAB 200 MCG TABLET VG ONE (20:00)
[2017-11-22] MEDS ORDERED: MISOPROSTOL VG PRN
[2017-11-22] MEDS ORDERED: ceFAZolin SODIUM IV Push 1 GM VIAL. IVP SCH ×2 (02:00→05:00)
[2017-11-22 03:20] VITALS: BP 123/60
[2017-11-22 04:15] VITALS: BP 125/59
[2017-11-22 07:45] VITALS: BP 110/68
--- NOTE | 2017-11-22 08:18 | PDOC ---
VAGINAL DELIVERY DATE DATE: 11/22/17 TIME: 08:16 : Other (9) Para: Other (3) EGA: 18 VAGINAL DELIVERY: BREECH PLACENTA: Spontaneous 0/0 SEX: Male WEIGHT Weight [ 5 ounces] Nuchal Cord: No Amniotic Fluid: Other (dark brown) PAIN: Natural EPISIOTOMY: No EXTENSION: No EBL 100 ml COMPLICATIONS IUFD CONDITION pt. stable Signs of Intrauterine Infectio: None Shoulder Dystocia: No RAPHAEL KOHLER Jr, MD Nov 22, 2017 08:18
--- NOTE | 2017-11-22 08:19 | DISCH ---
DISCHARGE INSTRUCTIONS Condition on Discharge Condition on Discharge: Stable Activity After Discharge Activity Instructions for Disc: Activity as tolerated Bathing Instructions: Shower-keep dressing dry, No Tub Bath until see Exercise Instruction after Dis: Progress as tolerated Driving Instructions after Dis: Do not drive today Weight Bearing Status after Di: As tolerated Diet after Discharge Diet after Discharge: Regular Checks after Discharge Checks after discharge: Check your Temp as needed Contacting the DRBarber after DC Call your doctor for: Concerns you may have Follow-Up Follow up with: Dr. Monahan in 2 weeks. RAPHAEL MONAHAN Jr, MD Nov 22, 2017 08:19
[2017-11-22] MEDS ORDERED: NAPR-683 PO (08:23)
[2017-11-22] MEDS ORDERED: MEASLES, MUMPS & RUBELLA VACC 0.5 ML VIAL. VAX SQ ONE (10:00)
[2017-11-22 12:48] VITALS: BP 130/86
== END 2017-11-22 13:05 | disposition home or self-care (01) | DRG 779 ==
LOC: 3 SO LND 08:18 → 3 NORTH 11-22 07:40
PROVIDERS: ADMIT Obstetrics & Gynecology; ATTEND Obstetrics & Gynecology
PROC: 10E0XZZ Delivery of Products of Conception, External Approach (ICD-10-PCS; principal; 2017-11-22)
PROC: 3E0P7VZ Introduction of Hormone into Female Reproductive, Via Natural or Artificial Opening (ICD-10-PCS; 2017-11-22)
PROC: 3E033VJ Introduction of Other Hormone into Peripheral Vein, Percutaneous Approach (ICD-10-PCS; 2017-11-22)
DX: O02.1 Missed abortion (principal); O32.1XX0 Maternal care for breech presentation, not applicable or unspecified; O34.219 Maternal care for unspecified type scar from previous cesarean delivery; Z37.1 Single stillbirth; Z3A.20 20 weeks gestation of pregnancy
CPT/HCPCS: 36415; 81001; 85025; 86703; 86762; 86803; 86850; 86900; 86901; 87086; 87340; 90707; J0690; J2590; J7120

== ENCOUNTER 2018-06-13 18:20 | Emergency (ER) | payer OTHER ==
[~2018-06-13] VITALS: Ht 157.5 cm; Wt 108.9 kg
[~2018-06-13 18:20] MED LIST changes: +HYDR-3164 PO; -HYDR-79 PO; -HYDR-971 PO; +HYDROCODONE-IB1 EAC3 PO
[2018-06-13 19:15] VITALS: BP 141/82
--- NOTE | 2018-06-13 20:11 | PHYS DOC ---
Past Medical History Past Medical History: No Pertinent History Additional Past Medical Histor: GESTATIONAL DIABETES (SOLADRIENNE MAYERS) Past Surgical History: Additional Past Surgical Histo: section (SOLADRIENNE APRN) Alcohol Use: None Drug Use: None (SOLADRIENNE APRN) Adult General Chief Complaint Chief Complaint: COUGH HPI HPI Patient is a 38 year old female 10 para 5 currently 18 weeks presenting to the ED today complaining of body aches, chills, cough, nasal congestion, symptoms began yesterday. Patient is also complaining of subjective fevers. She states she's been following up with her CRITICAL CARE UNIT MANAGER for her . Denies any vaginal bleeding. (REJIADRIENNE White APRN) Review of Systems Review of Systems Constitutional: Reports subjective fevers and body aches Eyes: Denies change in visual acuity, redness, or eye pain [] HENT: Reports nasal congestion, denies sore throat [] Respiratory: Denies cough or shortness of breath [] Cardiovascular: No additional information not addressed in HPI [] GI: Denies abdominal pain, nausea, vomiting, bloody stools or diarrhea [] : Denies dysuria or hematuria [] Musculoskeletal: Denies back pain or joint pain [] Integument: Denies rash or skin lesions [] Neurologic: Denies headache, focal weakness or sensory changes [] All other systems were reviewed and found to be within normal limits, except as documented in this note. (SOLADRIENNE APRN) Allergies Allergies Allergies Coded Allergies Type Severity Reaction Last Updated Verified No Known Drug Allergies 04/22/15 No (ALLI OSBORN DO) Physical Exam Physical Exam Constitutional: Well developed, well nourished, no acute distress, non-toxic appearance. [] HENT: Normocephalic, atraumatic, bilateral external ears normal, oropharynx moist, no oral exudates, nose normal. [] Eyes: PERRLA, EOMI, conjunctiva normal, no discharge. [] Neck: Normal range of motion, no tenderness, supple, no stridor. [] Cardiovascular:Heart rate regular rhythm, no murmur [] Lungs & Thorax: Bilateral breath sounds clear to auscultation [] Abdomen: Gravid abdomen. Bowel sounds normal, soft, no tenderness, no masses, no pulsatile masses. [] Skin: Warm, dry, no erythema, no rash. [] Back: No tenderness, no CVA tenderness. [] Extremities: No tenderness, no cyanosis, no clubbing, ROM intact, no edema. [] Neurologic: Alert and oriented X 3, normal motor function, normal sensory function, no focal deficits noted. [] Psychologic: Affect normal, judgement normal, mood normal. [] (SERENAUNGADRIENNE White APRN) Current Patient Data Vital Signs Vital Signs Date Time Temp Pulse Resp B/P (MAP) Pulse Ox O2 Delivery O2 Flow Rate FiO2 06/13/18 19:15 99.3 101 20 141/82 (101) 100 Room Air 99.3 (Taodyne) Lab Values Laboratory Tests Test 06/13/18 19:30 06/13/18 20:19 Influenza Type A Antigen Positive (NEGATIVE) Influenza Type B Antigen Negative (NEGATIVE) Urine Color Anny Urine Clarity Clear Urine pH 6.5 Urine Specific [place] 1.025 Urine Protein 100 mg/dL (NEG-TRACE) Urine Glucose (UA) Negative mg/dL (NEG) Urine Ketones (Stick) Negative mg/dL (NEG) Urine Blood Large (NEG) Urine Nitrite Negative (NEG) Urine Bilirubin Small (NEG) Urine Urobilinogen Dipstick 4.0 mg/dL (0.2 mg/dL) Urine Leukocyte Esterase Negative (NEG) Urine RBC 6-10 /HPF (0-2) Urine WBC 5-10 /HPF (0-4) Urine Squamous Epithelial Cells Occ /LPF Urine Bacteria Moderate /HPF (0-FEW) Urine Mucus Mod /LPF ([employer] DO) Lab Values Laboratory Tests Test 06/13/18 19:30 06/13/18 20:19 Influenza Type A Antigen Positive (NEGATIVE) Influenza Type B Antigen Negative (NEGATIVE) Urine Color Anny Urine Clarity Clear Urine pH 6.5 Urine Specific [place] 1.025 Urine Protein 100 mg/dL (NEG-TRACE) Urine Glucose (UA) Negative mg/dL (NEG) Urine Ketones (Stick) Negative mg/dL (NEG) Urine Blood Large (NEG) Urine Nitrite Negative (NEG) Urine Bilirubin Small (NEG) Urine Urobilinogen Dipstick 4.0 mg/dL (0.2 mg/dL) Urine Leukocyte Esterase Negative (NEG) Urine RBC 6-10 /HPF (0-2) Urine WBC 5-10 /HPF (0-4) Urine Squamous Epithelial Cells Occ /LPF Urine Bacteria Moderate /HPF (0-FEW) Urine Mucus Mod /LPF (ADRIENNE HORTON APRN) EKG EKG [] (ADRIENNE HORTON APRN) Radiology/Procedures Radiology/Procedures [] (ADRIENNE HORTON APRN) Course & Med Decision Making Course & Med Decision Making Pertinent Labs and Imaging studies reviewed. (See chart for details) This is a 38-year-old 10 para 5 currently 15 weeks presenting to the ED today complaining of cough, nasal congestion, body aches, subjective fevers, symptoms since yesterday. Positive for influenza A, negative influenza A and B. FHR 164. UA positive for UTI dc with Cephalaxin f/u with PCP next week. (ADRIENNE HORTON APRN) Dragon Disclaimer Dragon Disclaimer This electronic medical record was generated, in whole or in part, using a voice recognition dictation system. (ADRIENNE HORTON APRN) Departure Departure Impression: Primary Impression: Urinary tract infection during Additional Impression: Influenza A Disposition: HOME, SELF-CARE Condition: STABLE Referrals: NO PCP (PCP) Follow-up with the CRITICAL CARE UNIT MANAGER next week Patient Instructions: Influenza A (H1N1), Urinary Tract Infection Additional Instructions: You were evaluated in the emergency room and was positive for influenza A as well as urinary tract infection, take the prescribed medications as ordered until completed. Push fluids, take Tylenol as needed for pain. Rest, follow-up with your CRITICAL CARE UNIT MANAGER in the next 3-7 days. Scripts Oseltamivir Phosphate (TAMIFLU) 75 Mg Capsule 1 CAP PO BID, #10 CAP Prov: ADRIENNE HORTON APRN 06/13/18 Cephalexin (CEPHALEXIN) 500 Mg Tablet 1 TAB PO BID, #14 TAB Prov: ADRIENNE HORTON APRN 06/13/18 Attending Signature Attending Signature I have reviewed the PA/PRIMARY HEALTH ORGANISATION MANAGER's note and plan of care. I was available for consultation as needed during the patient's visit in the emergency department. I agree with the clinical impression, plan, and disposition. (ALLI OSBORN DO) Problem Qualifiers Primary Impression: Urinary tract infection during Trimester: unspecified trimester Qualified Codes: O23.40 - Unspecified infection of urinary tract in , unspecified trimester ADRIENNE HORTON APRN Jun 13, 2018 20:11 ALLI OSBORN DO Jun 14, 2018 04:27
[2018-06-13 20:17] LABS: INFLUENZA A PATIENT POSITIVE (NEGATIVE); INFLUENZA B PATIENT NEGATIVE (NEGATIVE)
[2018-06-13 20:37] LABS: BILIRUBIN,URINE SMALL (NEG); CLARITY,URINE CLEAR; COLOR,URINE AMBER; NITRITE,URINE NEGATIVE (NEG); PH,URINE 6.5; PROTEIN,URINE 100 mg/dL (NEG-TRACE)
[2018-06-13 20:51] LABS: BACTERIA,URINE MODERATE /HPF (0-FEW); SQUAMOUS EPITHELIAL CELL,UR OCC /LPF
[2018-06-13] MEDS ORDERED: OSEL75CA PO (20:58)
[2018-06-13] MEDS ORDERED: CEPH500T PO (20:58)
== END 2018-06-13 21:06 | disposition home or self-care (01) ==
LOC: ER 18:20
DX: O98.812 Other maternal infectious and parasitic diseases complicating pregnancy, second trimester (principal); J10.1 Influenza due to other identified influenza virus with other respiratory manifestations; N39.0 Urinary tract infection, site not specified; Z3A.18 18 weeks gestation of pregnancy
CPT/HCPCS: 81001; 87086; 87186; 87804; 99283

== ENCOUNTER → 2018-06-28 | Outpatient (CLI) | payer OTHER ==
[2018-06-13 19:15] VITALS: BP 141/82
[~2018-06-28] MED LIST changes: +CEPH500T PO; +OSEL75CA PO
--- NOTE | 2018-06-28 13:55 | RAD ---
Indication:Uterine size and date discrepancy TECHNIQUE: Ultrasound of the greater than 14 weeks. COMPARISON: None FINDINGS: Cervix is closed and measures 4 cm in length. Placenta lies fundal in location. Single intrauterine seen with heart rate of 152 bpm. Head circumference measures 16.6 cm corresponding to gestation age of 19 weeks 2 days. Biparietal diameter measures 4.7 cm corresponding to gestation age of 20 weeks 1 day. Abdominal circumference measures 15.7 cm corresponding to gestation age of 20 weeks 6 days. Femoral length measures 3.2 cm corresponding to gestation age of 20 weeks 0 days. Estimated weight of 347 g. Amniotic fluid index measures 11.3 cm. Face, upper extremities, lower extremities, three-vessel cord, stomach, nose and lips, kidneys, four-chamber heart, spine is visualized. lies vertex in position. IMPRESSION: Single live viable intrauterine with estimated gestation age of 20 weeks 1 day and due date of 11/14/2018. Electronically signed by: Samuel Headley DO (06/28/2018 1:52 PM) [facility]
== END | disposition home or self-care (01) ==
LOC: US 10:55
PROVIDERS: ATTEND Obstetrics & Gynecology
DX: O26.842 Uterine size-date discrepancy, second trimester (principal); Z3A.20 20 weeks gestation of pregnancy
CPT/HCPCS: 76805

== ENCOUNTER 2018-09-23 00:45 | Observation (INO) | payer SELFPAY ==
[2018-09-23] MEDS ORDERED: IV RINGERS,LACTATED 1000ML 1,000 ML IV PRN (01:00)
[2018-09-23 01:57] LABS: BILIRUBIN,URINE NEGATIVE (NEG); CLARITY,URINE CLEAR; COLOR,URINE AMBER; NITRITE,URINE NEGATIVE (NEG); PH,URINE 6.5; PROTEIN,URINE 100 mg/dL (NEG-TRACE)
[2018-09-23 02:04] LABS: BARBITURATES NEG (NEG); BENZODIAZEPINES NEG (NEG); CANNABINOIDS NEG (NEG); COCAINE NEG (NEG); METHADONE NEG (NEG); OPIATES NEG (NEG); PHENCYCLIDINE NEG (NEG)
[2018-09-23 02:08] LABS: BACTERIA,URINE FEW /HPF (0-FEW); HYALINE CASTS, URINE OCCASIONAL /HPF; SQUAMOUS EPITHELIAL CELL,UR MANY /LPF
[2018-09-23 02:11] LABS: AMPHETAMINE/METHAMPHETAMINE NEG (NEG)
[2018-09-23 02:16] LABS: AMNIO PT NEGATIVE
== END 2018-09-23 02:45 | disposition home or self-care (01) ==
LOC: 3 SO LND 00:45
PROVIDERS: ADMIT Obstetrics & Gynecology; ATTEND Obstetrics & Gynecology
DX: O42.913 Preterm premature rupture of membranes, unspecified as to length of time between rupture and onset of labor, third trimester (principal); Z3A.33 33 weeks gestation of pregnancy
CPT/HCPCS: 36415; 80307; 81001; 84112; 87086; G0378; G0379

== ENCOUNTER 2019-04-01 14:38 | Emergency (ER) | payer MEDICAID, OTHER ==
[~2019-04-01] VITALS: Ht 157.5 cm; Wt 111.1 kg
[~2019-04-01 14:38] MED LIST changes: +IBUP-1027 PO
[2019-04-01 15:28] LABS: BASO # 0.1 x10^3/uL (0.0-0.2); BASO % 1 % (0-3); EOS # 0.2 x10^3/uL (0.0-0.7); EOS % 2 % (0-3); HEMATOCRIT 37.2 % (36.0-47.0); HEMOGLOBIN 11.9 g/dL (12.0-15.5); LYMPH % 26 % (24-48); MEAN CORPUSCULAR HEMOGLOBIN 24 pg (25-35); MEAN CORPUSCULAR HGB CONC 32 g/dL (31-37); MEAN CORPUSCULAR VOLUME 76 fL (79-100); MONO # 0.6 x10^3/uL (0.0-1.1); MONO % 5 % (0-9); NEUT # 7.6 x10^3/uL (1.8-7.7); NEUT % 66 % (31-73); PLATELET COUNT 330 x10^3/uL (140-400); RED BLOOD COUNT 4.92 x10^6/uL (3.50-5.40); RED CELL DISTRIBUTION WIDTH 15.2 % (11.5-14.5); WHITE BLOOD COUNT 11.5 x10^3/uL (4.0-11.0)
[2019-04-01 15:30] LABS: BILIRUBIN,URINE NEGATIVE (NEG); CLARITY,URINE CLEAR; COLOR,URINE YELLOW; NITRITE,URINE NEGATIVE (NEG); PH,URINE 6.5; PROTEIN,URINE 100 mg/dL (NEG-TRACE)
--- NOTE | 2019-04-01 15:37 | RAD ---
ABDOMEN SUPINE UPRIGHT 04/01/2019 3:09 PM INDICATION: Abdominal pain COMPARISON: None available. TECHNIQUE: Single upright and 2 supine views of abdomen are provided. FINDINGS/ IMPRESSION: 1. Rounded densities in the right upper quadrant measuring up to 13 mm and may reflect cholelithiasis. 2. Small large bowel are normal in caliber. No differential air-fluid levels are identified. There is no pneumoperitoneum. Findings suggest nonobstructive bowel gas pattern. 3. Small volume fecal contents noted throughout the colon. 4. No organomegaly. No suspicious osseous normality. Electronically signed by: Cordelia Coe MD (04/01/2019 3:34 PM) [facility]
[2019-04-01 15:38] LABS: SQUAMOUS EPITHELIAL CELL,UR MANY /LPF
[2019-04-01 15:39] LABS: BACTERIA,URINE MOD /HPF (0-FEW); BARBITURATES NEG (NEG); BENZODIAZEPINES NEG (NEG); CANNABINOIDS NEG (NEG); COCAINE NEG (NEG); METHADONE NEG (NEG); OPIATES NEG (NEG); PHENCYCLIDINE NEG (NEG); RBC,URINE 0 /HPF (0-2); WBC,URINE 20-40 /HPF (0-4)
[2019-04-01 15:40] LABS: AMPHETAMINE/METHAMPHETAMINE NEG (NEG)
[2019-04-01 15:40] LABS: CALCIUM 8.4 mg/dL (8.5-10.1); CREATININE 0.7 mg/dL (0.6-1.0); GFR 92.2; POTASSIUM 3.6 mmol/L (3.5-5.1)
[2019-04-01 15:45] LABS: ALBUMIN 3.2 g/dL (3.4-5.0); ALBUMIN/GLOBULIN RATIO 0.7 (1.0-1.7); TOTAL BILIRUBIN 0.4 mg/dL (0.2-1.0)
--- NOTE | 2019-04-01 16:14 | RAD ---
CLINICAL HISTORY: abd pain hx of gallstones COMPARISON: 09/17/2017 TECHNIQUE: Limited ultrasound examination of the right upper quadrant of the abdomen was performed FINDINGS: Visualized portions of the pancreas are unremarkable. Liver: The liver measures 21.4 cm in length in the right mid clavicular line. Increased hepatic echogenicity relative to the right kidney consistent with hepatic steatosis. There is no focal abnormality of the liver. Portal and hepatic venous flow is confirmed with normal waveforms. Gallbladder/Biliary: Extensive cholelithiasis. There is no wall thickening or pericholecystic fluid. There is no pain with direct transducer pressure over the gallbladder.The common bile duct measures 0.6 cm. The right kidney measures 13.3 cm in bipolar length. No focal renal lesion. No hydronephrosis. There is no free fluid in the subhepatic space. IMPRESSION: Extensive cholelithiasis. No definite wall thickening or pericholecystic fluid to suggest acute cholecystitis although the majority of the gallbladder is shadowed out. Hepatomegaly and hepatic steatosis. Electronically signed by: Bert Sawant MD (04/01/2019 4:11 PM) [facility]
[2019-04-01] MEDS ORDERED: CEPH500T PO (17:14)
--- NOTE | 2019-04-01 17:15 | PHYS DOC ---
Past Medical History Past Medical History: Other Additional Past Medical Histor: GESTATIONAL DIABETES, GALL STONES Past Surgical History: Additional Past Surgical Histo: section Alcohol Use: None Drug Use: None Adult General Chief Complaint Chief Complaint: ABDOMINAL PAIN [facility] HPI Patient is a 39 year old female with history of cholelithiasis presenting to the ED today complaining of generalized mild intermittent poking abdominal pain that began 2 days ago. Patient is also complaining of nausea and diarrhea. Denies any fever. Denies any exacerbating or relieving factors to her pain. Review of Systems Review of Systems Constitutional: Denies fever or chills [] Eyes: Denies change in visual acuity, redness, or eye pain [] HENT: Denies nasal congestion or sore throat [] Respiratory: Denies cough or shortness of breath [] Cardiovascular: No additional information not addressed in HPI [] GI: Reports generalized abdominal pain with nausea and diarrhea, denies vomiting : Denies dysuria or hematuria [] Musculoskeletal: Denies back pain or joint pain [] Integument: Denies rash or skin lesions [] Neurologic: Denies headache, focal weakness or sensory changes [] All other systems were reviewed and found to be within normal limits, except as documented in this note. Allergies Allergies Allergies Coded Allergies Type Severity Reaction Last Updated Verified No Known Drug Allergies 04/22/15 No Physical Exam Physical Exam Constitutional: Well developed, well nourished, no acute distress, non-toxic appearance. [] HENT: Normocephalic, atraumatic, bilateral external ears normal, oropharynx moist, no oral exudates, nose normal. [] Eyes: PERRLA, EOMI, conjunctiva normal, no discharge. [] Neck: Normal range of motion, no tenderness, supple, no stridor. [] Cardiovascular:Heart rate regular rhythm, no murmur [] Lungs & Thorax: Bilateral breath sounds clear to auscultation [] Abdomen: Rounded abdomen. Bowel sounds normal, soft, diffuse tenderness throughout the abdomen. No point tenderness to the right upper quadrant or right lower quadrant, negative Stanley sign, negative psoas sign, negative obturator sign, no guarding, no rebound pain or tenderness, no masses, no pulsatile masses. [] Skin: Warm, dry, no erythema, no rash. [] Back: No tenderness, no CVA tenderness. [] Extremities: No tenderness, no cyanosis, no clubbing, ROM intact, no edema. [] Neurologic: Alert and oriented X 3, normal motor function, normal sensory function, no focal deficits noted. [] Psychologic: Affect normal, judgement normal, mood normal. [] Current Patient Data Vital Signs Vital Signs Date Time Temp Pulse Resp B/P (MAP) Pulse Ox O2 Delivery O2 Flow Rate FiO2 04/01/19 14:42 97.8 67 12 170/106 (127) 99 Room Air 97.8 Lab Values Laboratory Tests Test 04/01/19 14:52 04/01/19 14:55 04/01/19 15:18 Urine Collection Type Unknown Urine Color Yellow Urine Clarity Clear Urine pH 6.5 Urine Specific [place] 1.020 Urine Protein 100 mg/dL (NEG-TRACE) Urine Glucose (UA) Negative mg/dL (NEG) Urine Ketones (Stick) Negative mg/dL (NEG) Urine Blood Moderate (NEG) Urine Nitrite Negative (NEG) Urine Bilirubin Negative (NEG) Urine Urobilinogen Dipstick 4.0 mg/dL (0.2 mg/dL) Urine Leukocyte Esterase Moderate (NEG) Urine RBC 0 /HPF (0-2) Urine WBC 20-40 /HPF (0-4) Urine Squamous Epithelial Cells Many /LPF Urine Bacteria Mod /HPF (0-FEW) Urine Mucus Marked /LPF Urine Opiates Screen Neg (NEG) Urine Methadone Screen Neg (NEG) Urine Barbiturates Neg (NEG) Urine Phencyclidine Screen Neg (NEG) Urine Amphetamine/Methamphetamine Neg (NEG) Urine Benzodiazepines Screen Neg (NEG) Urine Cocaine Screen Neg (NEG) Urine Cannabinoids Screen Neg (NEG) Urine Ethyl Alcohol Neg (NEG) POC Urine HCG, Qualitative Hcg negative (Negative) White Blood Count 11.5 x10^3/uL (4.0-11.0) H Red Blood Count 4.92 x10^6/uL (3.50-5.40) Hemoglobin 11.9 g/dL (12.0-15.5) L Hematocrit 37.2 % (36.0-47.0) Mean Corpuscular Volume 76 fL (79-100) L Mean Corpuscular Hemoglobin 24 pg (25-35) L Mean Corpuscular Hemoglobin Concent 32 g/dL (31-37) Red Cell Distribution Width 15.2 % (11.5-14.5) H Platelet Count 330 x10^3/uL (140-400) Neutrophils (%) (Auto) 66 % (31-73) Lymphocytes (%) (Auto) 26 % (24-48) Monocytes (%) (Auto) 5 % (0-9) Eosinophils (%) (Auto) 2 % (0-3) Basophils (%) (Auto) 1 % (0-3) Neutrophils # (Auto) 7.6 x10^3/uL (1.8-7.7) Lymphocytes # (Auto) 3.0 x10^3/uL (1.0-4.8) Monocytes # (Auto) 0.6 x10^3/uL (0.0-1.1) Eosinophils # (Auto) 0.2 x10^3/uL (0.0-0.7) Basophils # (Auto) 0.1 x10^3/uL (0.0-0.2) Sodium Level 139 mmol/L (136-145) Potassium Level 3.6 mmol/L (3.5-5.1) Chloride Level 101 mmol/L (98-107) Carbon Dioxide Level 28 mmol/L (21-32) Anion Gap 10 (6-14) Blood Urea Nitrogen 12 mg/dL (7-20) Creatinine 0.7 mg/dL (0.6-1.0) Estimated GFR (Cockcroft-Gault) 92.2 BUN/Creatinine Ratio 17 (6-20) Glucose Level 131 mg/dL (70-99) H Calcium Level 8.4 mg/dL (8.5-10.1) L Total Bilirubin 0.4 mg/dL (0.2-1.0) Aspartate Amino Transferase (AST) 23 U/L (15-37) Alanine Aminotransferase (ALT) 35 U/L (14-59) Alkaline Phosphatase 102 U/L (46-116) Total Protein 8.0 g/dL (6.4-8.2) Albumin 3.2 g/dL (3.4-5.0) L Albumin/Globulin Ratio 0.7 (1.0-1.7) L Lipase 118 U/L (73-393) Ethyl Alcohol Level < 10 mg/dL (0-10) Laboratory Tests 04/01/19 15:18 Laboratory Tests 04/01/19 15:18 EKG EKG [] Radiology/Procedures Radiology/Procedures []PROCEDURE: ABDOMEN SUPINE & UPRIGHT ABDOMEN SUPINE UPRIGHT 04/01/2019 3:09 PM INDICATION: Abdominal pain COMPARISON: None available. TECHNIQUE: Single upright and 2 supine views of abdomen are provided. FINDINGS/ IMPRESSION: 1. Rounded densities in the right upper quadrant measuring up to 13 mm and may reflect cholelithiasis. 2. Small large bowel are normal in caliber. No differential air-fluid levels are identified. There is no pneumoperitoneum. Findings suggest nonobstructive bowel gas pattern. 3. Small volume fecal contents noted throughout the colon. 4. No organomegaly. No suspicious osseous normality. Electronically signed by: Jennifer Sheridan MD (04/01/2019 3:34 PM) [id number] DICTATED and SIGNED BY: JENNIFER SHERIDAN MD DATE: 04/01/19 1534 PROCEDURE: ABDOMEN LTD CLINICAL HISTORY: abd pain hx of gallstones COMPARISON: 09/17/2017 TECHNIQUE: Limited ultrasound examination of the right upper quadrant of the abdomen was performed FINDINGS: Visualized portions of the pancreas are unremarkable. Liver: The liver measures 21.4 cm in length in the right mid clavicular line. Increased hepatic echogenicity relative to the right kidney consistent with hepatic steatosis. There is no focal abnormality of the liver. Portal and hepatic venous flow is confirmed with normal waveforms. Gallbladder/Biliary: Extensive cholelithiasis. There is no wall thickening or pericholecystic fluid. There is no pain with direct transducer pressure over the gallbladder.The common bile duct measures 0.6 cm. The right kidney measures 13.3 cm in bipolar length. No focal renal lesion. No hydronephrosis. There is no free fluid in the subhepatic space. IMPRESSION: Extensive cholelithiasis. No definite wall thickening or pericholecystic fluid to suggest acute cholecystitis although the majority of the gallbladder is shadowed out. Hepatomegaly and hepatic steatosis. Electronically signed by: Bert Staton MD (04/01/2019 4:11 PM) [id number] DICTATED and SIGNED BY: BERT STATON MD DATE: 04/01/19 1611 Course & Med Decision Making Course & Med Decision Making Pertinent Labs and Imaging studies reviewed. (See chart for details) This is a 39-year-old female patient presenting to the ED today with generalized abdominal pain with nausea and diarrhea that began 2 days ago. Negative urine hCG, urine analysis is positive for UTI. CBC with a WBC of 11.5, CMP, lipase-no acute findings. X-ray of the abdomen is negative for any acute findings. Right upper quadrant limited ultrasound noted for cholelithiasis otherwise no cholecystitis. Patient was provided general surgery for follow-up. She reports she's been given general surgery to follow up with before but has tended to refuse to be seen be cause she does not want any surgery. Discharge with cephalexin for UTI. Dragon Disclaimer Dragon Disclaimer This electronic medical record was generated, in whole or in part, using a voice recognition dictation system. Departure Departure Impression: Primary Impression: UTI (urinary tract infection) Additional Impression: Cholelithiasis Disposition: HOME, SELF-CARE Condition: STABLE Referrals: NO PCP (PCP) KARI CALVERT MD follow up in 1-2 weeks Patient Instructions: Cholelithiasis, [id number], Urinary Tract Infection Additional Instructions: You were evaluated in the emergency room and noted to have gallstones and urinary tract infection, we put you on antibiotics, ensure you complete them. Please follow-up with the provided general surgeon as an outpatient. Please take Tylenol or Motrin for pain or fever. Scripts Cephalexin (CEPHALEXIN) 500 Mg Tablet 1 TAB PO BID, #14 TAB Prov: ADRIENNE HORTON APRN 04/01/19 Problem Qualifiers Primary Impression: UTI (urinary tract infection) Urinary tract infection type: site unspecified Hematuria presence: without hematuria Qualified Codes: N39.0 - Urinary tract infection, site not specified Additional Impression: Cholelithiasis Cholelithiasis location: gallbladder Cholecystitis presence: without cholecystitis Biliary obstruction: without biliary obstruction Qualified Codes: K80.20 - Calculus of gallbladder without cholecystitis without obstruction ADRIENNE HORTON APRN Apr 01, 2019 17:15
[2019-04-01 17:18] VITALS: BP 194/102
== END 2019-04-01 17:18 | disposition home or self-care (01) ==
LOC: ER 14:38
DX: N39.0 Urinary tract infection, site not specified (principal); K80.20 Calculus of gallbladder without cholecystitis without obstruction; Z98.890 Other specified postprocedural states
CPT/HCPCS: 36415; 74021; 76705; 80053; 80307; 81001; 81025; 83690; 85025; 99285; G0480

== ENCOUNTER 2019-06-24 07:08 | Emergency (ER) | payer SELFPAY ==
[~2019-06-24] VITALS: Ht 154.9 cm; Wt 103.0 kg
[2019-06-24] MEDS ORDERED: IV NORMAL SALINE 1000ML BAG 1,000 ML IV SCH (07:26)
[2019-06-24] MEDS ORDERED: ONDANSETRON PF 4 MG/2 ML VIAL. IVP ONE (07:30)
[2019-06-24] MEDS ORDERED: MORPHINE SULFATE 4 MG/ML VIAL. IV/SQ PRN (07:30)
[2019-06-24 07:38] LABS: BASO # 0.1 x10^3/uL (0.0-0.2); BASO % 1 % (0-3); EOS # 0.2 x10^3/uL (0.0-0.7); EOS % 2 % (0-3); HEMATOCRIT 37.8 % (36.0-47.0); HEMOGLOBIN 12.6 g/dL (12.0-15.5); LYMPH # 2.6 x10^3/uL (1.0-4.8); LYMPH % 31 % (24-48); MEAN CORPUSCULAR HEMOGLOBIN 25 pg (25-35); MEAN CORPUSCULAR HGB CONC 33 g/dL (31-37); MEAN CORPUSCULAR VOLUME 76 fL (79-100); MONO # 0.3 x10^3/uL (0.0-1.1); MONO % 4 % (0-9); NEUT % 61 % (31-73); PLATELET COUNT 318 x10^3/uL (140-400); RED BLOOD COUNT 4.98 x10^6/uL (3.50-5.40); RED CELL DISTRIBUTION WIDTH 14.4 % (11.5-14.5); WHITE BLOOD COUNT 8.2 x10^3/uL (4.0-11.0)
[2019-06-24 07:46] LABS: CALCIUM 8.4 mg/dL (8.5-10.1); CREATININE 0.7 mg/dL (0.6-1.0); GFR 92.2
--- NOTE | 2019-06-24 07:48 | PHYS DOC ---
Past Medical History Past Medical History: Other Additional Past Medical Histor: GESTATIONAL DIABETES, GALL STONES Past Surgical History: Additional Past Surgical Histo: section Smoking Status: Never Smoker Alcohol Use: None Drug Use: None Adult General Chief Complaint Chief Complaint: ABDOMINAL PAIN HPI HPI Patient is a 39 year old female who presents with complaint of lower abdominal pain that started this morning when she woke up. Patient rates pain at an 8 out of 10. She admits to some nausea but has had no vomiting. She reports no appetite this morning. Patient states the pain is worsened if she tries to stand up straight and walk. She states that nothing is improving her pain. She is not aware of any fever.[] Review of Systems Review of Systems Constitutional: Denies fever or chills [] Respiratory: Denies cough or shortness of breath [] Cardiovascular: No additional information not addressed in HPI [] GI: Complains of lower abdominal pain with nausea. Denies vomiting or diarrhea [] : Denies dysuria or hematuria [] All other systems were reviewed and found to be within normal limits, except as documented in this note. Current Medications Current Medications Current Medications Medications (Trade) Dose Ordered Sig/Macy Start Time Stop Time Status Last Admin Dose Admin Info (CONTRAST GIVEN -- Rx MONITORING) 1 each PRN DAILY PRN 06/24/19 09:15 06/26/19 09:14 Iohexol (Omnipaque 300 Mg/ml) 75 ml 1X ONCE 06/24/19 09:15 06/24/19 09:16 DC Morphine Sulfate (Morphine Sulfate) 4 mg PRN Q15MIN PRN 06/24/19 07:30 06/25/19 07:29 06/24/19 07:40 4 MG Ondansetron HCl (Zofran) 4 mg 1X ONCE 06/24/19 07:30 06/24/19 07:31 DC 06/24/19 07:38 4 MG Sodium Chloride 1,000 ml @ 1,000 mls/hr Q1H 06/24/19 07:26 06/24/19 08:25 DC 06/24/19 07:36 1,000 MLS/HR Allergies Allergies Allergies Coded Allergies Type Severity Reaction Last Updated Verified No Known Drug Allergies 04/22/15 No Physical Exam Physical Exam Constitutional: Well developed, well nourished, no acute distress, non-toxic appearance. [] HENT: Normocephalic, atraumatic, bilateral external ears normal, oropharynx moist, no oral exudates, nose normal. [] Eyes: PERRLA, EOMI, conjunctiva normal, no discharge. [] Neck: Normal range of motion, no tenderness, supple, no stridor. [] Cardiovascular:Heart rate regular rhythm, no murmur [] Lungs & Thorax: Bilateral breath sounds clear to auscultation [] Abdomen: Bowel sounds decreased, soft, with moderate McBurney's point tenderness. [] Skin: Warm, dry, no erythema, no rash. [] Extremities: No tenderness, no cyanosis, no clubbing, ROM intact, no edema. [] Neurologic: Alert and oriented X 3, no focal deficits noted. [] Current Patient Data Vital Signs Vital Signs Date Time Temp Pulse Resp B/P (MAP) Pulse Ox O2 Delivery O2 Flow Rate FiO2 06/24/19 08:44 74 18 180/87 (118) 98 Room Air 06/24/19 07:15 98.0 98.0 Lab Values Laboratory Tests Test 06/24/19 07:20 06/24/19 07:25 Urine Collection Type Unknown Urine Color Yellow Urine Clarity Clear Urine pH 7.0 (<5.0-8.0) Urine Specific [place] 1.020 (1.000-1.030) Urine Protein 30 mg/dL (NEG-TRACE) Urine Glucose (UA) Negative mg/dL (NEG) Urine Ketones (Stick) Negative mg/dL (NEG) Urine Blood Trace (NEG) Urine Nitrite Negative (NEG) Urine Bilirubin Negative (NEG) Urine Urobilinogen Dipstick 1.0 mg/dL (0.2 mg/dL) Urine Leukocyte Esterase Small (NEG) Urine RBC Rare /HPF (0-2) Urine WBC Rare /HPF (0-4) Urine Squamous Epithelial Cells Few /LPF Urine Bacteria 0 /HPF (0-FEW) POC Urine HCG, Qualitative Hcg negative (Negative) White Blood Count 8.2 x10^3/uL (4.0-11.0) Red Blood Count 4.98 x10^6/uL (3.50-5.40) Hemoglobin 12.6 g/dL (12.0-15.5) Hematocrit 37.8 % (36.0-47.0) Mean Corpuscular Volume 76 fL (79-100) L Mean Corpuscular Hemoglobin 25 pg (25-35) Mean Corpuscular Hemoglobin Concent 33 g/dL (31-37) Red Cell Distribution Width 14.4 % (11.5-14.5) Platelet Count 318 x10^3/uL (140-400) Neutrophils (%) (Auto) 61 % (31-73) Lymphocytes (%) (Auto) 31 % (24-48) Monocytes (%) (Auto) 4 % (0-9) Eosinophils (%) (Auto) 2 % (0-3) Basophils (%) (Auto) 1 % (0-3) Neutrophils # (Auto) 5.0 x10^3/uL (1.8-7.7) Lymphocytes # (Auto) 2.6 x10^3/uL (1.0-4.8) Monocytes # (Auto) 0.3 x10^3/uL (0.0-1.1) Eosinophils # (Auto) 0.2 x10^3/uL (0.0-0.7) Basophils # (Auto) 0.1 x10^3/uL (0.0-0.2) Sodium Level 139 mmol/L (136-145) Potassium Level 4.0 mmol/L (3.5-5.1) Chloride Level 103 mmol/L (98-107) Carbon Dioxide Level 29 mmol/L (21-32) Anion Gap 7 (6-14) Blood Urea Nitrogen 14 mg/dL (7-20) Creatinine 0.7 mg/dL (0.6-1.0) Estimated GFR (Cockcroft-Gault) 92.2 BUN/Creatinine Ratio 20 (6-20) Glucose Level 137 mg/dL (70-99) H Calcium Level 8.4 mg/dL (8.5-10.1) L Total Bilirubin 0.3 mg/dL (0.2-1.0) Aspartate Amino Transferase (AST) 31 U/L (15-37) Alanine Aminotransferase (ALT) 44 U/L (14-59) Alkaline Phosphatase 103 U/L (46-116) Total Protein 7.4 g/dL (6.4-8.2) Albumin 3.2 g/dL (3.4-5.0) L Albumin/Globulin Ratio 0.8 (1.0-1.7) L Lipase 147 U/L (73-393) Laboratory Tests 06/24/19 07:25 Laboratory Tests 06/24/19 07:25 EKG EKG [] Radiology/Procedures Radiology/Procedures [] Course & Med Decision Making Course & Med Decision Making Pertinent Labs and Imaging studies reviewed. (See chart for details) [] Dragon Disclaimer Dragon Disclaimer This electronic medical record was generated, in whole or in part, using a voice recognition dictation system. Departure Departure Impression: Primary Impression: Lower abdominal pain Additional Impression: Enteritis Disposition: HOME, SELF-CARE Condition: STABLE Referrals: NO PCP (PCP) Patient Instructions: Abdominal Pain Scripts Ondansetron (ONDANSETRON ODT) 4 Mg Tab.rapdis 1 TAB PO PRN Q6-8HRS PRN for NAUSEA, #15 TAB Prov: HARMONY GARCÍA Jr. DO 06/24/19 Hydrocodone/Apap 5-325 (NORCO 5-325 TABLET) 1 Each Tablet 1-2 EACH PO PRN Q6HRS PRN for PAIN, #15 as needed for pain Prov: HARMONY GARCÍA Jr. DO 06/24/19 Problem Qualifiers HARMONY GARCÍA Jr. DO Jun 24, 2019 07:48
[2019-06-24 07:58] LABS: ALBUMIN 3.2 g/dL (3.4-5.0); ALBUMIN/GLOBULIN RATIO 0.8 (1.0-1.7); TOTAL BILIRUBIN 0.3 mg/dL (0.2-1.0); TOTAL PROTEIN 7.4 g/dL (6.4-8.2)
[2019-06-24 08:24] LABS: BILIRUBIN,URINE NEGATIVE (NEG); CLARITY,URINE CLEAR; COLOR,URINE YELLOW; NITRITE,URINE NEGATIVE (NEG); PROTEIN,URINE 30 mg/dL (NEG-TRACE)
[2019-06-24 08:32] LABS: BACTERIA,URINE 0 /HPF (0-FEW); RBC,URINE RARE /HPF (0-2); SQUAMOUS EPITHELIAL CELL,UR FEW /LPF; WBC,URINE RARE /HPF (0-4)
[2019-06-24] MEDS ORDERED: CONTRAST GIVEN. MC PRN (09:15)
[2019-06-24] MEDS ORDERED: IOHEXOL 300 MG/ML 100ML VIAL. IV ONE (09:15)
--- NOTE | 2019-06-24 10:21 | RAD ---
CT study of the abdomen and pelvis with contrast Clinical indications: Right lower quadrant abdominal pain TECHNIQUE: After IV infusion of 75 cc of Omnipaque 300, helical CT scanning of the abdomen and pelvis was performed. GI contrast was not administered. This may decrease the sensitivity to detect GI tract pathology. PQRS compliance Statement One or more of the following individualized dose reduction techniques were utilized for this study: 1. Automated exposure control 2. Adjustment of the mA and/or kV according to patient size 3. Use of iterative reconstruction technique COMPARISON: No previous CT available. FINDINGS: Diffuse fatty infiltration of the liver is seen. The spleen is not enlarged. Pancreas is normal. Multiple gallstones are seen within the gallbladder. No extrahepatic biliary ductal dilatation is seen. No adrenal mass is evident. There is a 2 cm simple cyst of the upper pole of the left kidney. This is an incidental finding. No follow-up imaging is recommended per consensus recommendations based on imaging criteria. No hydronephrosis or perinephric fluid collection is seen. No renal stone is evident. Urinary bladder is not abnormally distended. No hydroureter or ureteral stone is seen. No uterine mass is seen. No dominant ovarian cyst or mass is seen. No focal aneurysmal dilatation of the abdominal aorta is seen. No enlarged abdominal or pelvic lymphadenopathy is seen. The appendix is normal. The terminal ileum is unremarkable. Wall thickening of the small bowel is seen. There is mild mesenteric edema. This may be seen with enteritis. No obstructive bowel pattern is evident. Small amount of dependent free fluid as seen within the pelvis. No free air is seen. No lung base consolidation is evident. Heart size is mildly enlarged. No lytic process is seen. IMPRESSION: Mild wall thickening of the small bowel with mild mesenteric edema. Minimal dependent free fluid within the pelvis. This may be seen with enteritis. No obstructive bowel pattern is seen at this time. The appendix and terminal ileum are unremarkable. Diffuse fatty infiltration of the liver. Multiple gallstones are seen within the gallbladder. Gallbladder is not distended and no gallbladder wall thickening is seen. No extrahepatic biliary ductal dilatation is seen. Mild cardiomegaly. Electronically signed by: Ryland Hunt MD (06/24/2019 10:17 AM) [facility] [place]
[2019-06-24] MEDS ORDERED: HYDR-3164 PO (10:48)
[2019-06-24] MEDS ORDERED: ONDA4TAB12 PO (10:48)
[2019-06-24 10:55] VITALS: BP 182/102
== END 2019-06-24 11:33 | disposition home or self-care (01) ==
LOC: ER 07:08
DX: K52.9 Noninfective gastroenteritis and colitis, unspecified (principal)
CPT/HCPCS: 36415; 74177; 80053; 81001; 81025; 83690; 85025; 87086; 96361; 96374; 96375; 99285; J2270; J2405; J7030

== ENCOUNTER 2020-07-03 10:22 | Emergency (ER) | payer SELFPAY ==
[~2020-07-03] VITALS: Ht 157.5 cm; Wt 90.0 kg
[~2020-07-03 10:22] MED LIST changes: +ONDA4TAB12 PO
[2020-07-03 11:00] VITALS: BP 147/79
--- NOTE | 2020-07-03 11:33 | PHYS DOC ---
Past Medical History Past Medical History: Other Additional Past Medical Histor: GESTATIONAL DIABETES, GALLSTONES Past Surgical History: Smoking Status: Former Smoker Additional Information: chews Alcohol Use: Occasionally Drug Use: None General Adult EDM: Chief Complaint: SORE THROAT HPI: HPI: 40-year-old female presents with report of sore throat and neck discomfort that is been ongoing for the past day or 2. Patient reports it started in the back of her throat and now she has some neck discomfort. Denies fever or chills. Denies trauma. Denies known sick contacts. Reports some associated headache. Review of Systems: Review of Systems: Constitutional: Denies fever or chills Eyes: Denies redness or eye pain HENT: Denies nasal congestion; reports sore throat Respiratory: Denies cough or shortness of breath Cardiovascular: Denies chest pain or palpitations GI: Denies abdominal pain, nausea, or vomiting : Denies dysuria or hematuria Musculoskeletal: Denies back pain; reports neck pain Integument: Denies rash or skin lesions Neurologic: Reports headache; denies focal weakness or sensory changes Complete systems were reviewed and found to be within normal limits, except as documented in this note. Heart Score: C/O Chest Pain: N/A Current Medications: Current Medications Medications (Trade) Dose Ordered Sig/Macy Start Time Stop Time Status Last Admin Dose Admin Dexamethasone (Decadron) 10 mg 1X ONCE 07/03/20 11:45 07/03/20 11:46 Allergies: Allergies: Allergies Coded Allergies Type Severity Reaction Last Updated Verified No Known Drug Allergies 04/22/15 No Physical Exam: PE: Constitutional: Well developed, well nourished, no acute distress, non-toxic appearance HENT: Normocephalic, atraumatic, pharyngeal erythema without exudate Eyes: Conjunctiva normal, no discharge Neck: Normal range of motion, no tenderness, supple, thyroid prominence, anterior cervical lymphadenopathy Lungs & Thorax: No respiratory distress, equal chest rise and fall Skin: Warm, dry, no erythema, no rash Extremities: No tenderness, ROM intact, no edema Neurologic: Alert and oriented X 3, no focal deficits noted Psychologic: Affect normal, judgment normal Current Patient Data: Vital Signs: Vital Signs Date Time Temp Pulse Resp B/P (MAP) Pulse Ox O2 Delivery O2 Flow Rate FiO2 07/03/20 11:00 98.8 93 16 147/79 (101) 97 Room Air 98.8 EKG: EKG: [] Radiology/Procedures: Radiology/Procedures: [] Course & Med Decision Making: Course & Med Decision Making Pertinent Lab studies reviewed. (See chart for details) Patient presents with report of sore throat now with throat swelling. There is some mild lymphadenopathy appreciated. Thyroid appears prominent. Afebrile. Cannot fully exclude COVID-19 infection. Patient reports history of headache. COVID-19 testing pending. Rapid strep negative. Symptomatic treatment provided with oral steroid. Patient stable for discharge with outpatient follow-up with PCP and for further evaluation of possible thyroid issue. Discussed findings and plan with patient, who acknowledges understanding and agreement. [employer] Disclaimer: [employer] Disclaimer: This electronic medical record was generated, in whole or in part, using a voice recognition dictation system. Departure Departure Impression: Primary Impression: Sore throat Additional Impression: Suspected 2019 novel coronavirus infection Disposition: 01 DC HOME SELF CARE/HOMELESS Condition: STABLE Referrals: NO PCP (PCP) Patient Instructions: Sore Throat, [id number] Additional Instructions: If symptoms continue, you may need to follow with your family physician for further evaluation of your thyroid. You have been tested for or diagnosed with COVID-19. It is an infection caused by a new type of coronavirus. COVID-19 will cause cold-like or mild flu symptoms in most. It can cause more severe symptoms like problems breathing in some. There is no treatment for COVID-19. The body will clear the infection over time. Self-care will help to ease discomfort. Steps to Take: Self-Care Rest as needed. Healthy habits may help you feel better. Steps include: Choose healthy foods including fruits and vegetables. Drink water throughout the day. Get plenty of sleep each night. If you smoke, try to quit. It may ease breathing. Avoid alcohol. Keep Others Healthy The virus can spread to others. Droplets are released every time you sneeze or cough. The droplets can get into the mouth, nose, or eyes of people near you and lead to infection. To lower the chances of spreading COVID-19 to others: Stay at home until your doctor has said it is safe to leave. If you tested positive this will mean staying isolated until both of the following are true: At least 7 days have passed since the start of illness. You are free of fever for at least 72 hours without the use of medicine. During this time: - Avoid public areas, events, or transportation. Do not return to work or school until your doctor has said it is safe to do so. - Call ahead if you need to go to a medical center. Let them know you may have COVID-19. It will help them guide you where to go. They may also ask you to wear a facemask when you come to the office. - If you call for emergency medical services, let them know you may have COVID- 19. While at home: - Try to avoid close contact with others. Stay about 6 feet away. - If possible, spend most of your time in a separate room from others. - Use a face mask if you will be in close contact with others such as sharing a room or vehicle. - Have someone wipe down common surfaces in the home. Use household industrial waste treatment technician every day on areas like doorknobs, counters, or sinks. - Cough or sneeze into a tissue. Throw the tissue away right after use. If a tissue is not available, cough or sneeze into your elbow. - Wash your hands often. Wash them after sneezing or coughing. Use soap and water and wash for at least 20 seconds. Alcohol based hand stock sheets cleaner inspector can be used if soap and water is not available. - Do not prepare food for others. Avoid sharing personal items like forks, spoons, or toothbrushes. - Avoid close contact with pets while you are sick. There is no evidence of the virus passing to pets. This is a safety step until more is known about this virus. Isolation can be frustrating. Social interaction can help. Keep in touch with friends and family through phone and tech options. You can still interact with others in you r home, just keep a safe distance of about 6 feet. Follow-up: Your doctors office will check in with you to see if there are any changes in your health. You may be asked to keep track of symptoms to share with them. They will also let you know when you are clear to be in public again. Problems to Look Out For: Contact your doctor if your recovery is not going as you expect. Get emergency care if you have problems such as: - Trouble breathing - Nonstop chest pain or pressure - Changes in awareness, confusion, or problems waking - Lips or face have bluish color - Worsening of symptoms If you think you have an emergency, call for emergency medical services right away. As taken from [facility] COVID-19 Assessment: COVID-19 Patient Risks: Age 65 or older: No Sign of co-morbidity: No Exp to person + for COVID: No Exp to PUI: No Travel from affected area: No Lower respiratory symptoms: No Fever: No Other: Yes PPE Use: Full PPE with N95 mask or PAPR: Yes ALLI OSBORN DO Jul 03, 2020 11:33
[2020-07-03] MEDS ORDERED: DEXAMETHASONE 4 MG TABLET PO ONE (11:45)
== END 2020-07-03 12:02 | disposition home or self-care (01) ==
LOC: ER 10:22
DX: J02.9 Acute pharyngitis, unspecified (principal); Z20.822 Contact with and (suspected) exposure to COVID-19; M54.2 Cervicalgia; R51.9 Headache, unspecified; Z87.891 Personal history of nicotine dependence
CPT/HCPCS: 87070; 87880; 99283; C9803; U0003